=== PATIENT | female | born 1995 | race Caucasian/White ===

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

== ENCOUNTER 2018-01-25 13:18 | Emergency (ER) | payer SELFPAY ==
[~2018-01-25] VITALS: Ht 147.3 cm; Wt 83.7 kg
[~2018-01-25 13:18] MED LIST changes: +ACET-749 PO; +ALBU4TAB10 PO; +CEPH-570 PO; +DXM/4 PO; +GUAISYP4 PO; -ZYRUNK PO
[2018-01-25 13:28] VITALS: TEMP 36.9; Ht 147.3 cm; Wt 83.7 kg
--- NOTE | 2018-01-25 14:12 | DIAGNOSTIC IMAGING REPORT ---
CHEST ONE VIEW PORTABLE CLINICAL HISTORY: Pain, radiating to the abdomen. COMPARISON STUDY: 11/18/2016 FINDINGS: The cardiac and mediastinal contours are normal. There is no evidence of focal pulmonary consolidation. There is no evidence of failure. No pleural effusions are visualized.[ No free intraperitoneal air is visualized IMPRESSION: No active disease in the chest. Electronically signed by: Romulo Russell M.D. 01/25/2018 2:10 PM Dictated Date/Time: 01/25/2018 2:10 PM
[2018-01-25 14:23] LABS: BASO % 0.2 %; BASO ABS # 0.02 K/uL (0-0.2); EOS % 2.9 %; EOS ABS # 0.24 K/uL (0-0.5); HEMATOCRIT 41.5 % (37-47); HEMOGLOBIN 13.8 g/dL (12.0-16.0); IG# 0.02 K/uL (0.00-0.02); LYMPH % 31.3 %; LYMPH ABS # 2.55 K/uL (1.2-3.4); MEAN CELL VOLUME 85.2 fL (80-100); MEAN CORPUSCULAR HEMOGLOBIN 28.3 pg (25-34); MEAN CORPUSCULAR HGB CONC 33.3 g/dl (32-36); MEAN PLATELET VOLUME 9.1 fL (7.4-10.4); MONO % 6.8 %; MONO ABS # 0.55 K/uL (0.11-0.59); NEUT % 58.6 %; NEUT ABS # 4.76 K/uL (1.4-6.5); PLATELET COUNT 362 K/uL (130-400); RED CELL DISTRIBUTION WIDTH CV 13.7 % (11.5-14.5); RED CELL DISTRIBUTION WIDTH SD 42.5 fL (36.4-46.3); WHITE BLOOD COUNT 8.14 K/uL (4.8-10.8)
[2018-01-25 14:46] LABS: ALBUMIN 4.5 gm/dl (3.4-5.0); ALT/SGPT 18 U/L (12-78); AST/SGOT 11 U/L (15-37); BLOOD UREA NITROGEN 11 mg/dl (7-18); CALCIUM 9.8 mg/dl (8.5-10.1); CARBON DIOXIDE 25 mmol/L (21-32); CREATININE 0.85 mg/dl (0.60-1.20); GLUCOSE 80 mg/dl (70-99); LIPASE 115 U/L (73-393); POTASSIUM 3.3 mmol/L (3.5-5.1); SODIUM 137 mmol/L (136-145)
[2018-01-25 14:52] LABS: ALKALINE PHOSPHATASE 73 U/L (45-117); TOTAL PROTEIN 8.5 gm/dl (6.4-8.2)
[2018-01-25] MEDS ORDERED: ASPI-390 PO (14:59)
--- NOTE | 2018-01-25 15:34 | DIAGNOSTIC IMAGING REPORT ---
MRI OF THE BRAIN WITHOUT AND WITH IV CONTRAST CLINICAL HISTORY: Diploplia/dyconjugate gaze, swollen optic disc, rule out mass, tinnitus COMPARISON STUDY: No previous studies for comparison. TECHNIQUE: MRI of the brain was performed from the vertex to the skull base utilizing various T1 and T2 weighted sequences. Following the IV administration of 8 mL of Gadavist contrast, additional enhanced images were obtained. FINDINGS: Sagittal T1, axial diffusion, proton density and T2 weighted axial, coronal FLAIR, and pre and post axial T1-weighted images were acquired. These were supplemented with post gadolinium coronal T1 weighted images. No intra or extra-axial mass lesions are visualized. Axial diffusion-weighted images reveal no evidence of acute or subacute infarction. There is no evidence of ventricular dilatation. Proton density T2-weighted and FLAIR images reveal no significant intraparenchymal signal abnormalities. There are no abnormal flow voids. There is no evidence of pathologic enhancement. IMPRESSION: Normal MRI of the brain. Electronically signed by: Romulo Russell M.D. 01/25/2018 3:33 PM Dictated Date/Time: 01/25/2018 3:28 PM
[2018-01-25] MEDS ORDERED: GADAVIST IV PRN (15:45)
[2018-01-25] MEDS ORDERED: METOCLOPRAMIDE HCL INJ 5 MG/ML 2 ML VIAL IV STA (16:05)
[2018-01-25] MEDS ORDERED: SODIUM CHLORIDE 0.9% 1000ML 1,000 ML IV STA (16:05)
[2018-01-25] MEDS ORDERED: DiphenhydrAMINE HCL 50 MG/ML VIAL IV STA (16:05)
[2018-01-25] MEDS ORDERED: LIDOCAINE 1% BUFFERED INJ 5 ML VIAL INFIL ONE (16:47)
--- NOTE | 2018-01-25 17:39 | EMERGENCY ROOM VISIT NOTE ---
History Report prepared by Toroibkevin: Soham Bernstein Under the Supervision of: Dr. Mk Ramirez M.D. First contact with patient: 13:38 Chief Complaint: NEURO SYMPTOMS Stated Complaint: DOUBLE VISION,HEADACHE/PRESSURE,RINGING IN EARS History of Present Illness The patient is a 22 year old female who presents to the Emergency Room with complaints of intermittent neurologic symptoms beginning about a month ago. Her symptoms include feeling off balance, double vision, ear ringing and headache ( worse on the right side). Her symptoms have become present daily as of the past two weeks. The patient's double vision began more recently. She describes her ear ringing as "it sounds like waves". She has vomited from her headaches before. She denies cough, fevers, or chills. The patient has a previous history of migraines. She denies use of oral contraception. She denies tobacco, drug or alcohol use. The patient was seen by her warehouse shipping clerk today to schedule for Lasix surgery. 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 Source of History: patient Onset: About a month ago Quality: other (neurologic symptoms) Timing: intermittent Associated Symptoms: + headache, + vomiting, No fevers, No chills, No cough Note: Positive: feeling off balance, double vision and ear ringing. Review of Systems See HPI for pertinent positives and negatives. A total of ten systems were reviewed and were otherwise negative. Past Medical & Surgical Medical Problems: (1) Chest pain (2) No Known Active Medical Problems (3) RSV bronchiolitis Family History No pertinent family history Social History Smoking Status: Never Smoker Alcohol Use: none Drug Use: none Occupation Status: employed Current/Historical Medications Scheduled Acetazolamide (Acetazolamide), 1 TAB PO BID Rkfuzun-Mgcsjpeeewknd-Uapfpwpl (Excedrin Migraine), 2 TABS PO UD Ondasetron Odt (Zofran Odt), 4 MG SL Q6H Allergies Coded Allergies: Latex (Unverified Adverse Reaction, Intermediate, RASH, 01/25/18) Physical Exam Vital Signs Date Time Temp Pulse Resp B/P (MAP) Pulse Ox O2 Delivery O2 Flow Rate FiO2 01/25/18 18:57 98 20 137/83 100 01/25/18 17:02 116/102 01/25/18 16:48 96 98 01/25/18 16:31 123/87 01/25/18 16:18 94 98 01/25/18 16:15 127/75 01/25/18 14:55 151/109 01/25/18 14:54 90 16 151/109 99 Room Air 01/25/18 14:20 83 01/25/18 13:28 36.9 108 20 135/88 93 Room Air Physical Exam GENERAL: Awake, alert, fatigued-appearing, in no distress HENT: Normocephalic, atraumatic. Oropharynx unremarkable other than dry mucous membranes. EYES: Normal conjunctiva. Sclera non-icteric. Subtle disconjugate gaze. NECK: Supple. No nuchal rigidity. FROM. No JVD. RESPIRATORY: Clear to auscultation. CARDIAC: Regular rate, normal rhythm. Extremities warm and well perfused. Pulses equal. ABDOMEN: Soft, non-distended. No tenderness to palpation. No rebound or guarding. No masses. RECTAL: Deferred. MUSCULOSKELETAL: Chest examination reveals no tenderness. The back is symmetrical on inspection without obvious abnormality. There is no CVA tenderness to palpation. No joint edema. LOWER EXTREMITIES: Calves are equal size bilaterally and non-tender. No edema. No discoloration. NEURO: Normal sensorium. No sensory or motor deficits noted. Normal cerebellar function with jrzqmz-[id number], alternating palms, [id number] SKIN: No rash or jaundice noted. Medical Decision & Procedures ER Provider Diagnostic Interpretation: Radiology results as stated below per my review and radiologist interpretation: CHEST ONE VIEW PORTABLE FINDINGS: The cardiac and mediastinal contours are normal. There is no evidence of focal pulmonary consolidation. There is no evidence of failure. No pleural effusions are visualized.[ No free intraperitoneal air is visualized IMPRESSION: No active disease in the chest. Electronically signed by: Romulo Russell M.D. 01/25/2018 2:10 PM MRI OF THE BRAIN WITHOUT AND WITH IV CONTRAST FINDINGS: Sagittal T1, axial diffusion, proton density and T2 weighted axial, coronal FLAIR, and pre and post axial T1-weighted images were acquired. These were supplemented with post gadolinium coronal T1 weighted images. No intra or extra-axial mass lesions are visualized. Axial diffusion-weighted images reveal no evidence of acute or subacute infarction. There is no evidence of ventricular dilatation. Proton density T2-weighted and FLAIR images reveal no significant intraparenchymal signal abnormalities. There are no abnormal flow voids. There is no evidence of pathologic enhancement. IMPRESSION: Normal MRI of the brain. Electronically signed by: Romulo Russell M.D. 01/25/2018 3:33 PM Laboratory Results 01/25/18 14:10 Red Blood Count 4.87, Mean Corpuscular Volume 85.2, Mean Corpuscular Hemoglobin 28.3, Mean Corpuscular Hemoglobin Concent 33.3, Mean Platelet Volume 9.1, Neutrophils (%) (Auto) 58.6, Lymphocytes (%) (Auto) 31.3, Monocytes (%) (Auto) 6.8, Eosinophils (%) (Auto) 2.9, Basophils (%) (Auto) 0.2, Neutrophils # (Auto) 4.76, Lymphocytes # (Auto) 2.55, Monocytes # (Auto) 0.55, Eosinophils # (Auto) 0.24, Basophils # (Auto) 0.02 01/25/18 14:10 Test 01/25/18 14:10 01/25/18 14:50 White Blood Count 8.14 K/uL (4.8-10.8) Red Blood Count 4.87 M/uL (4.2-5.4) Hemoglobin 13.8 g/dL (12.0-16.0) Hematocrit 41.5 % (37-47) Mean Corpuscular Volume 85.2 fL (80-100) Mean Corpuscular Hemoglobin 28.3 pg (25-34) Mean Corpuscular Hemoglobin Concent 33.3 g/dl (32-36) Platelet Count 362 K/uL (130-400) Mean Platelet Volume 9.1 fL (7.4-10.4) Neutrophils (%) (Auto) 58.6 % Lymphocytes (%) (Auto) 31.3 % Monocytes (%) (Auto) 6.8 % Eosinophils (%) (Auto) 2.9 % Basophils (%) (Auto) 0.2 % Neutrophils # (Auto) 4.76 K/uL (1.4-6.5) Lymphocytes # (Auto) 2.55 K/uL (1.2-3.4) Monocytes # (Auto) 0.55 K/uL (0.11-0.59) Eosinophils # (Auto) 0.24 K/uL (0-0.5) Basophils # (Auto) 0.02 K/uL (0-0.2) RDW Standard Deviation 42.5 fL (36.4-46.3) RDW Coefficient of Variation 13.7 % (11.5-14.5) Immature Granulocyte % (Auto) 0.2 % Immature Granulocyte # (Auto) 0.02 K/uL (0.00-0.02) Anion Gap 7.0 mmol/L (3-11) Est Creatinine Clear Calc Drug Dose 96.7 ml/min Estimated GFR () 114.3 Estimated GFR (Non- 98.6 BUN/Creatinine Ratio 13.5 (10-20) Calcium Level 9.8 mg/dl (8.5-10.1) Magnesium Level 2.0 mg/dl (1.8-2.4) Total Bilirubin 0.4 mg/dl (0.2-1) Direct Bilirubin < 0.1 mg/dl (0-0.2) Aspartate Amino Transf (AST/SGOT) 11 U/L (15-37) Alanine Aminotransferase (ALT/SGPT) 18 U/L (12-78) Alkaline Phosphatase 73 U/L (45-117) Troponin I < 0.015 ng/ml (0-0.045) Total Protein 8.5 gm/dl (6.4-8.2) Albumin 4.5 gm/dl (3.4-5.0) Lipase 115 U/L (73-393) Lyme Disease IgG Antibody NEG (NEG) Lyme Disease IgM Antibody NEG (NEG) Urine Color YELLOW Urine Appearance CLEAR (CLEAR) Urine pH 5.0 (4.5-7.5) Urine Specific [place] 1.013 (1.000-1.030) Urine Protein NEG (NEG) Urine Glucose (UA) NEG (NEG) Urine Ketones NEG (NEG) Urine Occult Blood 1+ (NEG) Urine Nitrite NEG (NEG) Urine Bilirubin NEG (NEG) Urine Urobilinogen NEG (NEG) Urine Leukocyte Esterase NEG (NEG) Urine WBC (Auto) 1-5 /hpf (0-5) Urine RBC (Auto) 5-10 /hpf (0-4) Urine Hyaline Casts (Auto) 0 /lpf (0-5) Urine Epithelial Cells (Auto) 5-10 /lpf (0-5) Urine Bacteria (Auto) NEG (NEG) Urine Test NEG (NEG) Laboratory results reviewed by me Medications Administered Medications (Trade) Dose Ordered Sig/Donaldo Route Start Time Stop Time Status Last Admin Dose Admin Sodium Chloride 1,000 ml @ 999 mls/hr Q1H1M STAT IV 01/25/18 16:05 01/25/18 17:13 DC 01/25/18 16:17 999 MLS/HR Metoclopramide HCl (Reglan Inj) 10 mg NOW STAT IV 01/25/18 16:05 01/25/18 16:06 DC 01/25/18 16:18 10 MG Diphenhydramine HCl (Benadryl Inj) 25 mg NOW STAT IV 01/25/18 16:05 01/25/18 16:06 DC 01/25/18 16:18 25 MG Acetazolamide (Diamox Tab) 250 mg NOW STAT PO 01/25/18 18:00 01/25/18 18:02 DC 01/25/18 18:56 250 MG Acetazolamide (Diamox Tab) 250 mg NOW STAT PO 01/25/18 18:00 01/25/18 18:02 DC 01/25/18 18:56 250 MG Procedure Lumbar Puncture Indication: Diplopia, r/o IIH. Verbal consent was obtained after the risks and benefits were explained, including but not limited to headache, bleeding/clotting, scarring, infection, pain, and bone/joint/nerve damage. At this time, the risks of the procedure are less than the risks of NOT performing the procedure. A time out was taken and the correct patient and site identified. The patient was placed in the right lateral decubitus position and the back was prepped with betadine and draped in the standard fashion. The L3 intervertebral space was identified, anesthetized locally with 1% lidocaine without epinephrine, and the spinal needle was inserted through the skin with the bevel parallel to the dural fibers. The needle was carefully advanced into the lumbar cistern and only single drop of clear CSF access unable to send for studies or assess opening pressure. The stylet was replaced and the needle was removed. A bandaid was placed and the patient was placed in the supine position. The patient tolerated the procedure well and there were no complications. ECG Per My Interpretation Indication: other (neuro symptoms) Rate (beats per minute): 72 Rhythm: normal sinus Findings: other (Normal axis. No ST elevations. ) ED Course 1343: The patient was evaluated in room A11B. A complete history and physical exam was performed. 1650: I conducted the lumbar puncture. See the procedure note for details. 1954: I reevaluated the patient. Discussed results and discharge instructions: [ ] verbalized understanding and agreement. The patient is ready for discharge. Medical Decision I reviewed the patient's past medical history, medications, and the nursing notes as described above. Differential diagnosis: Etiologies such as migraine headache, meningitis, sinusitis, CO exposure, ICH, SAH, infection, tumor, headache, sinus thrombosis, arterial dissection, as well as others were entertained. The patient is a 22-year-old woman who presents emergency department after being referred by her warehouse shipping clerk, Dr. Lopez, [facility] after having a initial evaluation to arrange for Lasix surgery and was found to have swollen optic disks bilaterally in the setting of the patient reporting double vision over the past couple of days and so was sent to the ED for evaluation of possible idiopathic intracranial hypertension. On arrival, the patient is fatigued and uncomfortable but no acute distress, afebrile stable vital signs. On exam the patient has a subtle disconjugate gaze with likely lag of lateral rectus bilaterally further consistent with IIH. Neuro exam otherwise unremarkable including normal cerebellar function with [id number]-[id number], alternating palms, [id number]. Labs unremarkable. MRI of the brain with and without contrast also unremarkable. Lumbar puncture per procedure note attempted however unsuccessful due to the patient's challenging body habitus. Of note, a single drop of clear CSF was obtained however unable to enter the cistern completely likely related to the patient's habitus. Thus, procedure was deferred with plan for IR guided approach. Case was discussed with Dr. Curry, neurology rubber extrusion machine operator who agrees that the patient's workup can be done outpatient. Given that she is currently self-pay followed by [facility] it would be most cost effective for her to follow-up with [facility] to order a fluoroscopic guided lumbar puncture and that [facility] can feel free to contact him for further recommendations/questions. Agrees with beginning empiric treatment with acetazolamide low-dose of 250 twice daily. CM assisting and will contact [facility] to communicate need for IR LP. Plan for outpatient follow-up discussed with patient and she is agreeable. Patient denies any recent history of tick bites but will screen for Lyme given the high prevalence in the community. Findings and plan for follow-up reviewed with patient. Patient agreeable and d/c'd per discharge instructions. Medication Reconcilliation Current Medication List: was personally reviewed by me Blood Pressure Screening Patient's blood pressure: Elevated blood pressure Blood pressure disposition: Elevated BP felt to be situational Consults Time Called: 1739 Consulting Physician: Dr. Curry - Neurology Returned Call: [phone] I discussed the patient with Dr. Curry. He states that the patient's symptoms generally are worked up as an outpatient, so the patient can follow up through her primary care office. He notes that the patient will need radiology guided LP. Dr. Curry recommends a low dose of Diamox. Impression Primary Impression: Diplopia Additional Impressions: Headache Idiopathic intracranial hypertension Scribe Attestation The scribe's documentation has been prepared under my direction and personally reviewed by me in its entirety. I confirm that the note above accurately reflects all work, treatment, procedures, and medical decision making performed by me. Departure Information Dispostion Home / Self-Care Prescriptions Ondasetron Odt (ZOFRAN ODT) 4 Mg Tab 4 MG SL Q6H for Nausea, #10 TAB Prov: Mk Ramirez M.D. 01/25/18 Acetazolamide (Acetazolamide) 250 Mg Tab 1 TAB PO BID for 14 Days, #28 TABS Prov: Mk Ramirez M.D. 01/25/18 Referrals No Doctor, Assigned (PCP) Berto Curry M.D. (MEDICINE) Patient Instructions ED Double Vision, My [facility] Additional Instructions Please follow up with your primary care physician ([facility]) in the next 1-3 days for re-evaluation and to arrange for an outpatient fluoroscopic guided lumbar puncture to help confirm your likely diagnosis of Idiopathic Intracranial Hypertension (Pseudotumor Cerebri). Your doctor a contact neurology, Dr. Curry , if they have an questions regarding testing/treatment. Otherwise, your exam, EKG, chest xray, lab results, and MRI of your brain did not show signs of an emergent condition at this time. Acetaminophen or ibuprofen for pain and fevers as needed. Zofran as needed for nausea. Acetazolamide as directed. Drink plenty of fluids to ensure hydration. Return to the emergency department for worsening symptoms as described in the accompanying instructions. Problem Qualifiers
[2018-01-25] MEDS ORDERED: AcetaZOLAMIDE 250 MG TAB PO STA ×2 (18:00)
[2018-01-25] MEDS ORDERED: DMX250 PO (18:05)
[2018-01-25] MEDS ORDERED: ONDA4TAB10 SL (18:08)
[2018-01-25 18:57] VITALS: BP 137/83; PULSE 98; O2SAT 100
== END 2018-01-25 18:58 | disposition home or self-care (01) ==
LOC: C.EDB 13:20 → C.EDA 18:58
DX: H53.2 Diplopia (principal); R51 Headache; G93.2 Benign intracranial hypertension; R11.10 Vomiting, unspecified; H93.11 Tinnitus, right ear; Z79.899 Other long term (current) drug therapy; Z91.040 Latex allergy status